=== PATIENT | female | born 1975 | race Native Hawaiian/Other Pacific Islander ===

== ENCOUNTER 2018-11-15 16:06 | Emergency (ER) | payer OTHER ==
[~2018-11-15] VITALS: Ht 167.6 cm; Wt 70.3 kg
[2018-11-15 16:18] VITALS: BP 124/79; TEMP 99
[2018-11-15 16:53] LABS: PLATELET COUNT 300 K/uL (152-353)
== END 2018-11-15 17:33 | disposition home or self-care (01) ==
LOC: ED 16:06
PROVIDERS: Student in an Organized Health Care Education/Training Program
DX: E03.9 Hypothyroidism, unspecified (principal)
CPT/HCPCS: 80048; 81000; 81025; 83735; 84443; 85027; 99281